=== PATIENT | female | born 1990 | race Hispanic/Latino ===

== ENCOUNTER 2017-10-12 16:58 | Emergency (ER) | payer BC ==
[2017-10-12 17:28] LABS: Bilirubin Negative (Negative); Blood, Urine Trace (Negative); Clarity Clear (Clear); Glucose, Urine (Dipstick) Negative (Negative); Leukocyte Negative (Negative); Nitrite Negative (Negative); Protein, Urine (Dipstick) Trace mg/dL (Neg-Trace); Specific Gravity, Urine 1.025 (1.005-1.030)
[2017-10-12 17:31] LABS: Bacteria/HPF Rare-Few HPF (None Seen); RBC/HPF 0-3 HPF (0-3); WBC/HPF None Seen HPF (0-3)
[2017-10-12 17:32] LABS: Pregnancy Test - Urine (BHCG) Negative (Negative); Pregu Control Background? CLEAR/WHITE (CLR/WHITE); Pregu Control Bar Appear? YES (CONTROL BAR); Specific Gravity 1.025 (1.002-1.036)
[2017-10-12] MEDS ORDERED: Famotidine/PF 20 mg/2ml Vial ONE (17:38)
[2017-10-12 18:11] LABS: ALT (SGPT) 21 U/L (8-55); AST (SGOT) 21 U/L (5-34); Albumin 4.5 g/dL (3.5-5.0); Alkaline Phosphatase 82 U/L (40-150); Anion Gap 13 mmol/L (10-20); BUN (Urea Nitrogen) 14 mg/dL (7.0-18.7); Bilirubin, Direct 0.2 mg/dL (0.1-0.3); Bilirubin, Total 0.5 mg/dL (0.2-1.2); Calc. Creatinine Clearance 0 mL/min (70-130); Calcium 9.4 mg/dL (7.8-10.44); Carbon Dioxide 22 mmol/L (22-29); Chloride 107 mmol/L (98-107); Estimated GFR-MDRD Greater than 90; Glucose 108 mg/dL (70-105); Potassium 3.6 mmol/L (3.5-5.1); Protein, Total 8.3 g/dL (6.0-8.3); Sodium 138 mmol/L (136-145)
[2017-10-12 18:13] LABS: Band 5 % (5-11); Hemoglobin 14.1 g/dL (12.0-16.0); Lymphocytes 15 % (21-51); MDiff Complete? YES; Mean Corpuscular HGB CONC 34.1 g/dL (32.0-36.0); Mean Corpuscular Hemoglobin 27.1 pg (27.0-31.0); Mean Corpuscular Volume 79.4 fL (78.0-98.0); Mean Platelet Volume 7.4 fL (7.4-10.4); Monocytes 7 % (0-10); Neutrophil 72 % (42-75); PLT Morphology Comment Appears Adequate; Platelet Count 290 thou/uL (130-400); RBC Distribution Width 10.6 % (11.5-14.5); RBC Morphology Normal; Red Blood Cell (RBC) Count 5.19 mill/uL (4.20-5.40); White Blood Cell (WBC) Count 11.3 thou/uL (4.8-10.8)
[2017-10-12] MEDS ORDERED: Acetaminophen 325 MG TAB ONE (18:24)
[2017-10-12] MEDS ORDERED: Lidocaine Viscous Sol 2% 15 ml UD Cup ONE (18:57)
[2017-10-12] MEDS ORDERED: Mag-Al Plus 1200 MG/1200 MG/120 MG/30 ML UDCUP ONE (18:57)
--- NOTE | 2017-10-12 19:34 | RAD ---
TWO VIEWS CHEST: History: Right upper quadrant pain, fever. Comparison: None. FINDINGS: Two views chest: Normal cardiac silhouette. The pulmonary vessels and hilum are normal. Costophrenic angles are clear. No consolidation or mass. No pneumothorax or osseous abnormality. IMPRESSION: No acute cardiopulmonary process. POS: [facility]
--- NOTE | 2017-10-12 19:52 | ULT ---
ABDOMEN ULTRASOUND: 10/12/17 HISTORY: Right upper quadrant pain. COMPARISON: None. TECHNIQUE: Utilizing a multihertz transducer, sonographic imaging of the right upper quadrant is performed in th e longitudinal and transverse plane. FINDINGS: There is increased echogenic liver which may be due to hepatic steatosis or hepatocellular disease. S ubsequent evaluation of the hepatic masses and intrahepatic biliary dilatation is limited. The pancreas is obscured by bowel gas. The visualized aorta and IVC have a normal caliber. No sonographic evidence of cholelithiasis, gallbladder wall thickening or pericholecystic fluid. Neg ative Ren's sign. Common bile duct diameter is 0.16 cm. Main portal vein is patent. Appropriate directional flow. Bilaterally, no hydronephrosis. Right kidney measures 10.4 x 6.7 x 5.3 cm. Left kidney measures 5.5 x 5.0 x 12.0 cm. The spleen has a normal echotexture measuring 11.1 cm. IMPRESSION: 1. No acute abnormality. 2. Possible hepatic steatosis. Correlate clinically. POS: [facility]
== END 2017-10-12 19:12 | disposition home or self-care (01) ==
LOC: SCSER 16:58
DX: R10.11 Right upper quadrant pain (principal); R10.13 Epigastric pain; R50.9 Fever, unspecified; G43.909 Migraine, unspecified, not intractable, without status migrainosus
CPT/HCPCS: 71046; 76700; 80048; 80076; 81003; 81015; 81025; 83605; 85025; 93005; 96361; 96374; S0028